=== PATIENT | female | born 1950 | race Caucasian/White ===

== ENCOUNTER 2020-04-20 10:30 | Emergency (ER) | payer OTHER ==
[~2020-04-20] VITALS: Ht 144.8 cm; Wt 59.0 kg
[~2020-04-20 10:30] MED LIST: KETO10TA PO; LISI5TAB18 PO; METF500T PO; OLAN20TA1 PO
[2020-04-20 10:52] VITALS: BP 136/58
[2020-04-20] MEDS ORDERED: ONDANSETRON 4 MG ODT PO ONE (11:25)
[2020-04-20 11:50] LABS: BASOPHILS % (AUTO) 1.1 % (0.0-2.0); EOSINOPHILS # (AUTO) 0.1 K/uL (0-0.4); EOSINOPHILS % (AUTO) 3.7 % (0.0-4.0); HEMATOCRIT 33.2 % (36-48); HEMOGLOBIN 11.2 g/dL (12.0-16.0); LYMPHOCYTES # (AUTO) 0.5 K/uL (2.5-16.5); LYMPHOCYTES % (AUTO) 17.7 % (20.5-51.1); MEAN CORPUSCULAR HEMOGLOBIN 34 pg (27-31); MEAN CORPUSCULAR HGB CONC 34 g/dL (33-37); MEAN CORPUSCULAR VOLUME 100.5 fL (80-94); MONOCYTES # (AUTO) 0.2 K/uL (0.8-1.0); MONOCYTES % (AUTO) 7.9 % (1.7-9.3); NEUTROPHILS # (AUTO) 1.9 K/uL (1.8-7.7); NEUTROPHILS % (AUTO) 69.6 % (42.2-75.2); PLATELET COUNT (AUTO) 62 K/uL (140-450); RED CELL DISTRIBUTION WIDTH 17.2 % (11.6-13.7); WHITE BLOOD COUNT (AUTO) 2.7 K/uL (4.8-10.8)
[2020-04-20 11:54] LABS: APPEARANCE,URINE HAZY (CLEAR); BILIRUBIN,URINE NEGATIVE (NEGATIVE); BLOOD, URINE TRACE-I (NEGATIVE); COLOR,URINE YELLOW (YELLOW); LEUKOCYTE ESTERASE ,URINE NEGATIVE (NEGATIVE); NITRITE, URINE NEGATIVE (NEGATIVE); PH,URINE 5.5 (5.0-9.0); UGLUCOSE NEGATIVE (NEGATIVE)
[2020-04-20 12:07] LABS: ALBUMIN 3.2 g/dL (3.4-5.0); ANION GAP 15.9 (8-16); CARBON DIOXIDE 20.3 mmol/L (21-32); CREATININE 0.9 mg/dL (0.6-1.3); POTASSIUM 4.2 mmol/L (3.5-5.1); TOTAL BILIRUBIN 2.4 mg/dL (0.0-1.0)
[2020-04-20 12:35] LABS: RBC,URINE 0-5 /HPF (0-5); WBC,URINE NONE SEEN /HPF (0-5)
[2020-04-20 13:57] VITALS: BP 114/65
== END 2020-04-20 13:57 | disposition home or self-care (01) ==
LOC: MED 10:30
DX: R11.0 Nausea (principal); E11.9 Type 2 diabetes mellitus without complications; I51.89 Other ill-defined heart diseases; Z88.0 Allergy status to penicillin; Z79.899 Other long term (current) drug therapy
CPT/HCPCS: 36415; 80053; 81001; 85025; 99283; Q0162

== ENCOUNTER 2020-07-27 22:15 | Emergency (ER) | payer OTHER, SELFPAY ==
[~2020-07-27] VITALS: Ht 127 cm; Wt 52.6 kg
[~2020-07-27 22:15] MED LIST changes: +APIX5TAB PO; +AZIT250T3 PO; +DEC1 PO; +DOXY100C9 PO; +GLIP10TE PO; -KETO10TA PO; -LISI5TAB18 PO; -METF500T PO; -OLAN20TA1 PO; +[UNRECOGNIZED DRUG - CODE] PO
[2020-07-27 22:28] VITALS: BP 131/70
--- NOTE | 2020-07-27 22:28 | NUR ---
70 Y/O FEMALE PRESENTED TO ED C/O HIGH BLOOD SUGAR. PT FAMILY STATES IT HAS BEEN TRENDING UP ALL DAY. PT STATES SHE HAS BEEN COMPLIANT W/ MEDICATION. PT DENIES ANY HEADACHE, NAUSEA , VOMITING. A/O X 4. RR EVEN AND UNLABORED. PT SITTING IN LOBBY W/ FAMILY. NO ACUTE DISTRESS. ERMD MADE AWARE OF PT STATUS. PMH: HTN AX: PCN
[2020-07-27] MEDS ORDERED: INSULIN REGULAR, HUMAN 100 UNIT/ML VIAL SUBQ ONE (23:00)
--- NOTE | 2020-07-28 00:37 | NUR ---
PT EVALUATED AND DISCHARGED BY DR. RAZA. ALL RELEVANT DISCHARGE INSTRUCTIONS, MEDICATION ADMINISTRATION AND SIDE EFFECTS EXPLAINED BY DR. RAZA. PT SENT HOME WITH [facility]
[2020-07-29] MEDS ORDERED: VITA-16 PO (16:36)
[2020-07-29] MEDS ORDERED: PIOG45TA10 PO (16:36)
== END 2020-07-28 00:37 | disposition home or self-care (01) ==
LOC: MED 22:15
DX: E11.649 Type 2 diabetes mellitus with hypoglycemia without coma (principal); N39.0 Urinary tract infection, site not specified; Z88.0 Allergy status to penicillin; Z79.899 Other long term (current) drug therapy
CPT/HCPCS: 81002; 82948; 96372; 99283; J1815

== ENCOUNTER 2020-07-29 16:21 | Emergency (ER) | payer OTHER, SELFPAY ==
[~2020-07-29] VITALS: Ht 152.4 cm; Wt 52.2 kg
[2020-07-29 16:25] VITALS: BP 129/72
--- NOTE | 2020-07-29 16:32 | NUR ---
PT PLACED IN W/C AND PLACED IN LOBBY TO WAIT FOR MSE.
[2020-07-29] MEDS ORDERED: PIOG45TA10 PO (16:36)
[2020-07-29] MEDS ORDERED: VITA-16 PO (16:36)
[2020-07-29] MEDS ORDERED: NACL 0.9% 1,000 ML IV ONE (16:40)
--- NOTE | 2020-07-29 17:14 | NUR ---
PT TAKEN TO BED 12.
--- NOTE | 2020-07-29 17:20 | NUR ---
70 yo bib self with c/c of high blood sugar and weakness x1 day. pt stated she was here last night after an 8 day stay. pt denies pain at this time. pt denies fever, sob, & chest pain. no blurred vision. bed locked in lowest position, side rails x2. pt on residential monitor and pulse ox. hx: cirrhosis rx: macrobid, pioglitazone, glipizide allerg: pcn
--- NOTE | 2020-07-29 18:35 | NUR ---
steady ambulation to with assistance and back to bed.
--- NOTE | 2020-07-29 18:47 | NUR ---
Note rodone in EDM - 07/29/20 at 1852 by MED Patient discharged with v/s stable. Written and verbal after care instructions given and explained. Patient alert, oriented and verbalized understanding of instructions. Ambulance Transport with to halfway. All questions addressed prior to discharge. ID band removed. Patient advised to follow up with PMD. Rx of colace given. Patient educated on indication of medication including possible reaction and side effects. Opportunity to ask questions provided and answered.
--- NOTE | 2020-07-29 19:13 | NUR ---
RECEIVED REPORT FROM MARNIE ALEJANDRO
[2020-07-29 19:29] VITALS: BP 106/52
--- NOTE | 2020-07-29 19:30 | NUR ---
Patient discharged with v/s stable. Written and verbal after care instructions given and explained. Patient verbalized understanding. Ambulatory with steady gait. All questions addressed prior to discharge. Advised to follow up with PMD.
== END 2020-07-29 19:29 | disposition home or self-care (01) ==
LOC: MED 16:21
DX: E11.65 Type 2 diabetes mellitus with hyperglycemia (principal); Z88.0 Allergy status to penicillin; Z98.890 Other specified postprocedural states; Z79.899 Other long term (current) drug therapy
CPT/HCPCS: 81002; 96360; 99283

== ENCOUNTER 2023-07-11 03:39 | Emergency (ER) | payer OTHER ==
[~2023-07-11] VITALS: Ht 142.2 cm; Wt 50.8 kg
[~2023-07-11 03:39] MED LIST changes: -APIX5TAB PO; -AZIT250T3 PO; -DEC1 PO; -DOXY100C9 PO; +PIOG45TA10 PO; +VITA-16 PO; -[UNRECOGNIZED DRUG - CODE] PO
[2023-07-11 03:45] VITALS: BP 150/71; PULSE 127; RESP 22; TEMP 100.4; O2SAT 98
[2023-07-11] MEDS ORDERED: ACETAMINOPHEN 325 MG TAB PO ONE (03:55)
[2023-07-11] MEDS ORDERED: ACETAMINOPHEN 325 MG TAB ONE (03:56)
[2023-07-11 04:35] LABS: FLU A ANTIGEN negative (NEGATIVE); FLU B ANTIGEN NEGATIVE (NEGATIVE)
[2023-07-11] MEDS ORDERED: ONDA8TAB87 PO (14:31)
== END 2023-07-11 04:44 | disposition left against medical advice (07) ==
LOC: EDBD → MED 03:39
DX: R25.1 Tremor, unspecified (principal); R73.9 Hyperglycemia, unspecified; Z20.822 Contact with and (suspected) exposure to COVID-19; Z53.21 Procedure and treatment not carried out due to patient leaving prior to being seen by health care provider
CPT/HCPCS: 99281

== ENCOUNTER 2023-07-11 14:10 | Emergency (ER) | payer OTHER ==
[~2023-07-11] VITALS: Ht 152.4 cm; Wt 53.1 kg
[2023-07-11 14:11] VITALS: BP 115/58; PULSE 82; RESP 20; TEMP 99.3; O2SAT 99
[2023-07-11] MEDS ORDERED: ONDA8TAB87 PO (14:31)
[2023-07-11 14:41] VITALS: BP 115/58; PULSE 82; RESP 20; TEMP 99.3; O2SAT 99
== END 2023-07-11 14:44 | disposition home or self-care (01) ==
LOC: MED 14:10
DX: J11.1 Influenza due to unidentified influenza virus with other respiratory manifestations (principal); E11.9 Type 2 diabetes mellitus without complications; Z90.49 Acquired absence of other specified parts of digestive tract; Z79.899 Other long term (current) drug therapy; Z88.0 Allergy status to penicillin
CPT/HCPCS: 99283